=== PATIENT | female | born 1985 | race Caucasian/White ===

== ENCOUNTER 2018-07-03 20:32 | Emergency (ER) | payer BC ==
[~2018-07-03] VITALS: Ht 165.1 cm; Wt 57.7 kg
[2018-07-03 20:41] VITALS: Ht 165.1 cm; Wt 57.7 kg
[2018-07-03] MEDS ORDERED: KETOROLAC 30 MG INJ IV STA (21:33)
[2018-07-03] MEDS ORDERED: LORAZEPAM 2 MG INJ IV ONE (22:00)
[2018-07-03 23:26] VITALS: BP 100/67; PULSE 97; RESP 16
[2018-07-03] MEDS ORDERED: POTASSIUM CHLORIDE (SR) 20 MEQ TAB PO STA (23:29)
[2018-07-03] MEDS ORDERED: POTA10TA37 PO (23:39)
[2018-07-03] MEDS ORDERED: NAPR-985 PO (23:39)
[2018-07-03] MEDS ORDERED: CYCL5TAB PO (23:41)
--- NOTE | 2018-07-04 01:58 | ERD ---
ER Documentation Chief Complaint Chief Complaint TINGLING/ PAIN BILAT LEGS, ARMS. BILAT HAND STIFFNESS X'S 1 HOUR HPI History of Present Illness: 33-year-old female with no past medical history coming in today with an episode that occurred part 20 minutes prior to arrival that included lightheadedness, ve blurry ry vision, sweating, heart pounding and feeling in her throat that lasted approximately 5 minutes. Patient then reports that her bilateral legs and feet the skin to tingle and then the tingling is moved up to her thighs and is still currently present to her left thigh. Patient reports that this sensation to her lower legs is initially painful and numb. Patient currently denies lightheadedness, vision changes, sweating, palpitations, chest pain. Patient reports that tingling to bilateral lower legs and hands is still present. Patient reports her hands feel locked up and unable to move without pain.. Patient reports that she feels like she has worked out and she is having full body muscle pain. At home pharmacological/nonpharmacological treatment for symptoms: Denies social concerns; Denies recent foreign travel ROS All systems reviewed and are negative except as per history of present illness. Medications Home Meds Active Scripts Cyclobenzaprine Hcl* (Cyclobenzaprine Hcl*) 5 Mg Tablet, 5 MG PO TID for MUSCLE SPASM/MUSCLE PAIN, #21 TAB Prov:VIKI HAIR V RAILROAD COOK 07/03/18 Potassium Chloride* (K-Dur*) 10 Meq Tab.prt.sr, 10 MEQ PO DAILY for MUSCLE CRAMPS, #5 TAB Prov:VIKI HAIR V RAILROAD COOK 07/03/18 Naproxen* (Naprosyn*) 500 Mg Tablet, 500 MG PO BID PRN for PAIN AND/OR INFLAMMATION, #30 TAB Prov:VIKI HAIR V RAILROAD COOK 07/03/18 Allergies Allergies: Coded Allergies: No Known Allergy (Unverified , 07/03/18) PMhx/Soc Medical and Surgical Hx: pt denies Medical Hx, pt denies Surgical Hx Hx Alcohol Use: No Hx Substance Use: No Hx Tobacco Use: No FmHx Family History: No diabetes, No coronary disease Physical Exam Vitals Vital Signs Date Temp Pulse Resp B/P (MAP) Pulse Ox O2 O2 Flow FiO2 Time Delivery Rate 07/03/18 98.3 97 16 100/67 97 Room Air 23:26 (78) 07/03/18 97.6 117 22 114/77 100 20:41 (89) Physical Exam Const: No acute distress, patient appears calm Head: Atraumatic Eyes: Normal Conjunctiva ENT: Normal External Ears, Nose and Mouth. Neck: Full range of motion. No meningismus. Resp: Clear to auscultation bilaterally Cardio: Regular rate and rhythm, no murmurs Abd: Soft, non tender, non distended. Normal bowel sounds Skin: No petechiae or rashes Back: No midline or flank tenderness Ext: No cyanosis, or edema; tenderness to palpation over forearms, hands, bilateral lower extremities, feet; neurovascularly intact distally to arms and legs Neur: Awake and alert Psych: Normal Mood and Affect Result Diagram: 07/03/18215507/03/182155 Results 24 hrs Laboratory Tests Test 07/03/18 21:52 07/03/18 21:56 07/03/18 21:57 POC Beta HCG, Qualitative NEGATIVE White Blood Count 9.9 10^3/ul Red Blood Count 4.40 10^6/ul Hemoglobin 13.2 g/dl Hematocrit 39.9 % Mean Corpuscular Volume 90.7 fl Mean Corpuscular Hemoglobin 30.0 pg Mean Corpuscular 33.1 g/dl Hemoglobin Concent Red Cell Distribution Width 12.8 % Platelet Count 358 10^3/UL Mean Platelet Volume 9.4 fl Immature Granulocytes % 0.300 % Neutrophils % 77.4 % Lymphocytes % 14.5 % Monocytes % 6.7 % Eosinophils % 0.6 % Basophils % 0.5 % Nucleated Red Blood Cells % 0.0 /100WBC Immature Granulocytes # 0.030 10^3/ul Neutrophils # 7.7 10^3/ul Lymphocytes # 1.4 10^3/ul Monocytes # 0.7 10^3/ul Eosinophils # 0.1 10^3/ul Basophils # 0.1 10^3/ul Nucleated Red Blood Cells # 0.0 10^3/ul Urine Color YELLOW Urine Clarity CLOUDY Urine pH 5.0 Urine Specific [place] 1.023 Urine Ketones 1+ mg/dL Urine Nitrite NEGATIVE mg/dL Urine Bilirubin NEGATIVE mg/dL Urine Urobilinogen 1+ mg/dL Urine Leukocyte Esterase NEGATIVE Yovany/ul Urine Microscopic RBC 2 /HPF Urine Microscopic WBC 13 /HPF Urine Squamous Epithelial Cells MODERATE /HPF Urine Mucus MANY /HPF Urine Hemoglobin 3+ mg/dL Urine Glucose NEGATIVE mg/dL Urine Total Protein 1+ mg/dl Sodium Level 141 mmol/L Potassium Level 3.4 mmol/L Chloride Level 100 mmol/L Carbon Dioxide Level 28 mmol/L Anion Gap 13 Blood Urea Nitrogen 22 mg/dl Creatinine 0.74 mg/dl Est Glomerular Filtrat > 60 mL/min Rate mL/min Glucose Level 144 mg/dl Calcium Level 10.2 mg/dl Total Bilirubin 0.4 mg/dl Direct Bilirubin 0.00 mg/dl Indirect Bilirubin 0.4 mg/dl Aspartate Amino Transf (AST/SGOT) 24 IU/L Alanine 12 IU/L Aminotransferase (ALT/SGPT) Alkaline Phosphatase 71 IU/L Lactate Dehydrogenase 484 IU/L Total Protein 8.7 g/dl Albumin 5.0 g/dl Globulin 3.70 g/dl Albumin/Globulin Ratio 1.35 Urine Opiates Screen NEGATIVE Urine Barbiturates NEGATIVE Urine Amphetamines Screen NEGATIVE Urine Benzodiazepines Screen NEGATIVE Urine Cocaine Screen NEGATIVE Urine Cannabinoids NEGATIVE Lactic Acid Level 1.1 mmol/L Magnesium Level 2.1 mg/dl Creatine Kinase 59 IU/L Creatine Kinase Index 0.6 Creatinine Kinase MB (Mass) 0.33 ng/ml Troponin I < 0.012 ng/ml Current Medications Medications Dose Sig/Jyothi Start Time Status Last (Trade) Ordered Route PRN Stop Time Admin Dose Reason Admin Lorazepam 1 mg ONCE ONCE 07/03/18 DC (Ativan) IV 22:00 07/03/18 22:01 Ketorolac 30 mg ONCE STAT 07/03/18 DC Tromethamine IV 21:33 07/03/18 (Toradol) 21:37 Potassium 20 meq ONCE STAT 07/03/18 DC 07/03/18 Chloride PO 23:29 07/03/18 23:53 (Klor-Con 20) 23:40 Procedures/MDM ED course includes a thorough examination and history. Medications: Ativan, ketorolac, cyclobenzaprine Imaging: --- Labs: CBC, CMP, magnesium, CK, CK-MB, urinalysis, myoglobin, lactic acid, urine drug screen Low suspicion for life-threatening medical emergency. Otherwise healthy patient presenting with constellation of symptoms likely representing muscle pain, elevated BUN, hypokalemia as characterized by history, physical exam findings, lab findings. CBC: no e/o of systemic infection or severe anemia. CMP: no e/o severe acidosis, alkalosis, renal failure, diabetic ketoacidosis, liver disease. Urinalysis negative for infection; moderate epithelial cells and bacteria present the patient reports is a dirty sample and denies any type of genitourinary symptoms. Urine drug screen negative. Magnesium within normal limits. CK, CK-MB within normal limits. Mild low potassium. Calcium at the upper end of normal. EKG: Rate/Rhythm: Normal Sinus Rhythm QRS, ST, T-waves: No changes consistent w/ acute ischemia Impression: No evidence of ischemia or arrhythmia Patient reassessment : Patient hemodynamically stable. Patient with significant decrease in pain. Patient able to move hands. disposition given. Questions answered. nO respiratory distress, otherwise relatively well appearing and nontoxic. Patient educated on diagnoses, prescriptions, follow-up care, return precautions. Strict return precautions given for worsening condition; questions answered discharge. Disposition for discharge with followup in 2 days with PCP/clinic. Departure Diagnosis: Primary Impression: Hypokalemia Additional Impression: Muscle pain Condition: Stable Patient Instructions: Hypokalemia, Muscle Spasm Referrals: [facility] YOU HAVE RECEIVED A MEDICAL SCREENING EXAM AND THE RESULTS INDICATE THAT YOU DO NOT HAVE A CONDITION THAT REQUIRES URGENT TREATMENT IN THE EMERGENCY DEPARTMENT. FURTHER EVALUATION AND TREATMENT OF YOUR CONDITION CAN WAIT UNTIL YOU ARE SEEN IN YOUR DOCTORS OFFICE WITHIN THE NEXT 1-2 DAYS. IT IS YOUR RESPONSIBILITY TO MAKE AN APPOINTMENT FOR FOLOW-UP CARE. IF YOU HAVE A PRIMARY DOCTOR --you should call your primary doctor and schedule an appointment IF YOU DO NOT HAVE A PRIMARY DOCTOR YOU CAN CALL OUR PHYSICIAN REFERRAL HOTLINE AT IF YOU CAN NOT AFFORD TO SEE A PHYSICIAN YOU CAN CHOSE FROM THE FOLLOWING [facility] CLINICS [facility] [address] [facility] [address] [facility] [address] [facility] [address] [facility] [address] [facility]. [facility]. [address] [facility] YOU HAVE RECEIVED A MEDICAL SCREENING EXAM AND THE RESULTS INDICATE THAT YOU DO NOT HAVE A CONDITION THAT REQUIRES URGENT TREATMENT IN THE EMERGENCY DEPARTMENT. FURTHER EVALUATION AND TREATMENT OF YOUR CONDITION CAN WAIT UNTIL YOU ARE SEEN IN YOUR DOCTORS OFFICE WITHIN THE NEXT 1-2 DAYS. IT IS YOUR RESPONSIBILITY TO MAKE AN APPOINTMENT FOR FOLOW-UP CARE. IF YOU HAVE A PRIMARY DOCTOR --you should call your primary doctor and schedule and appointment IF YOU DO NOT HAVE A PRIMARY DOCTOR YOU CAN CALL OUR PHYSICIAN REFERRAL HOTLINE AT . IF YOU CAN NOT AFFORD TO SEE A PHYSICIAN YOU CAN CHOSE FROM THE FOLLOWING [facility] INSTITUTIONS: [facility] [address] [place] [address] [facility] [address] [place] [address] [facility] + [facility] [address] [place] [address] Additional Instructions: Thank you very much for allowing us to participate in your care. Your health and safety is our top priority at [facility]. It is important to read all discharge instructions and education provided in your discharge packet. Call your primary care doctor TOMORROW for an appointment during the next 2-4 days and bring all the information and medications prescribed. Have prescriptions filled and follow precisely the directions on the label. If the symptoms get worse and your provider is unavailable, return to the E mergency Department immediately. VIKI HAIR NP July 04, 2018 01:58
== END 2018-07-03 23:57 | disposition home or self-care (01) ==
LOC: FTE 20:32
DX: E87.6 Hypokalemia (principal); M79.10 Myalgia, unspecified site
CPT/HCPCS: 36415; 80053; 80307; 81001; 81025; 82550; 82553; 83605; 83615; 83735; 83874; 84484; 85025; 93005; J1885; J2060